=== PATIENT | female | born 1965 | race Caucasian/White ===

== ENCOUNTER 2017-11-08 02:12 | Emergency (ER) | payer SELFPAY ==
[~2017-11-08] VITALS: Ht 170.2 cm; Wt 100.0 kg
[2017-11-08 03:01] VITALS: BP 127/75; PULSE 75; RESP 16; TEMP 97.8; O2SAT 100
--- NOTE | 2017-11-08 04:07 | PD ---
HPI Chief Complaint: Pain: Acute or Chronic Time Seen by Provider: 03:47 Travel History International Travel<30 days: No Contact w/Intl Traveler<30days: No Traveled to known affect area: No History of Present Illness HPI 52-year-old white female presents emergency department with complaints of chronic lower leg swelling. She states that she also has chronic knee pain and pain in her left heel. She admits to a history of obesity. 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 She notices that her feet will swell up. When she is off her feet they are less swollen and tense but they never go back to normal. She denies any shortness of breath or wheezing. No chest pain. PFSH Past Medical History Depression: Yes Migraines: Yes ?: Not : 3 Para: 1 Miscarriage: 1 : 1 Ectopic : Yes Tubal Ligation: Yes Past Surgical History Section: Yes Cholecystectomy: Yes Social History Alcohol Use: Yes Tobacco Use: Yes Substance Use: No Allergies-Medications (Allergen,Severity, Reaction): Coded Allergies: erythromycin base (Verified Allergy, Unknown, 11/08/17) Uncoded Allergies: EGGPLANT (Allergy, Unknown, 11/08/17) Review of Systems Except as stated in HPI: all other systems reviewed are Neg Physical Exam Narrative GENERAL: This is a well-nourished, well-developed patient, in no apparent distress. SKIN: No rashes, ecchymoses or lesions. Warm and dry. HEAD: Atraumatic. Normocephalic. EYES: PERRL, EOMI, no discharge or injection. No scleral icterus. EARS: Clear NOSE: Nasal turbinates appear normal. THROAT: Mucosa pink and moist. Airway patent. NECK: Trachea midline. supple, moves head freely. LUNGS: Clear to auscultation. CV: Regular in rhythm. ABDOMEN: Soft nontender. EXT: No clubbing cyanosis. Patient has large edematous lower legs consistent with lymphedema. She has tenderness to left posterior Achilles. She has intact Mckeon test bilaterally. 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 These are all chronic in nature. There is no evidence of any acute process. Data Data Last Documented VS Vital Signs Date Time Temp Pulse Resp B/P (MAP) Pulse Ox O2 Delivery O2 Flow Rate FiO2 3/25/18 03:01 97.8 75 16 127/75 (92) 100 Room Air MDM Medical Decision Making Medical Screen Exam Complete: Yes Emergency Medical Condition: No Medical Record Reviewed: No Differential Diagnosis Differential diagnosis: Cellulitis, DVT, lymphedema, tendinitis, gout, arthritis Narrative Course A medical screening exam was performed: At the time of evaluation the presenting medical condition was determined not to be of an emergent nature. The patient was given the option of receiving additional care, but declined. Patient was given options for additional community resources from which to obtain care. The Patient Has Been advised to seek medical attention for their presenting complaint. The patient has been advised to return to the ER at any time if an emergent condition develops. Diagnosis Primary Impression: Encounter for medical screening examination Condition: Stable Ben Helm Nov 08, 2017 04:07
== END 2017-11-08 04:30 | disposition left against medical advice (07) ==
LOC: NEPD 02:12
DX: M79.89 Other specified soft tissue disorders (principal); M79.672 Pain in left foot; M25.562 Pain in left knee; G89.29 Other chronic pain; F32.9 Major depressive disorder, single episode, unspecified; E66.9 Obesity, unspecified; Z72.0 Tobacco use
CPT/HCPCS: 99281